=== PATIENT | female | born 1975 | race Caucasian/White ===

== ENCOUNTER 2018-02-03 13:16 | Outpatient (REF) | payer BC, SELFPAY ==
--- NOTE | 2018-02-03 11:50 | PAPFT_PTH ---
PATIENT: Maria Del CarmenJuly LOC: NCN U#:[id number] AGE/SX: 42/F ROOM: RE02/03/[address]: Anna Ashby : 1975 BED: DIS: 02/03/2018 SPEC #: [id number] RECD: 02/04/18 13:09 STATUS: EVELYN REQ #: [id number] PAULA: 02/03/18 11:[address]: Anna Ashby DEPT: [facility] Cytology RECD BY: Pau Hartmann Tissues: 1 - CX/ENDOCX FOR PAP SMEARS Procedures: PAP THIN PREP/UVM Screening HPV DNA PROBE Comments: [id number] (CHLAMYDIA/GC)
[2018-02-05 18:05] LABS: Chlamydia Result Negative; GC Result Negative; Specimen Description SEE COMMENTS
== END 2018-02-03 13:36 ==
LOC: NCHCN 13:16
PROVIDERS: PCP Nurse Practitioner Family; Visit Provider Nurse Practitioner Family
DX: Z11.3 Encounter for screening for infections with a predominantly sexual mode of transmission (principal); Z12.4 Encounter for screening for malignant neoplasm of cervix; Z11.51 Encounter for screening for human papillomavirus (HPV); Z00.00 Encounter for general adult medical examination without abnormal findings
CPT/HCPCS: 87491; 87591; 88142; 87624

== ENCOUNTER 2018-02-18 00:10 | Outpatient (CLI) | payer BC, SELFPAY ==
--- NOTE | 2018-02-18 11:53 | DI.MAMMO_ITS ---
SYMPTOMS/DIAGNOSIS: SCREENING, Z12.31 MAMMOGRAMS: Mammograms were interpreted according to the usual protocol including computer analysis with CAD system, tomosynthesis and C view imaging. Comparison is with the prior examinations. No masses or microcalcifications are seen. There is nothing to suggest malignancy. IMPRESSION: Negative mammogram. Routine screening is recommended. Category 1 , breast density A. MQSA ASSESSMENT OF FINDINGS: Negative. Category 1. Patient will receive a letter notifying them of these results. BI-RAD category A. The breasts are almost entirely fatty.
== END 2018-02-18 00:30 ==
PROVIDERS: PCP Nurse Practitioner Family; Visit Provider Nurse Practitioner Family
DX: Z12.31 Encounter for screening mammogram for malignant neoplasm of breast (principal)
CPT/HCPCS: 77063; 77067

== ENCOUNTER 2018-02-20 01:41 | Outpatient (CLI) | payer BC, SELFPAY ==
[2018-02-20 08:09] LABS: HCT 39.6 % (36.0-46.0); HGB 13.7 g/dL (12.0-15.5); Mean Corp. HGB Concentration 34.6 g/dL (32.0-36.0); Mean Corpuscular Hemoglobin 31.2 pg (27.0-33.0); Mean Corpuscular Volume 90.2 fL (80-95); Platelet Count 227 x1000/uL (130-400); RBC 4.39 m/cumm (4.00-5.20); RBC Distribution Width 12.8 % (11.7-14.6); White Blood Cell Count 5.98 k/cumm (4.4-10.8)
[2018-02-20 08:19] LABS: Hemoglobin A1C 5.6 % (4.5-6.2)
[2018-02-20 09:20] LABS: Vitamin D 25 Total 29.6 ng/ml (30-100)
[2018-02-20 09:27] LABS: ALT 18 U/L (12-78); AST 17 U/L (15-37); Albumin 3.6 g/dL (3.4-5.0); Alkaline Phosphatase 76 U/L (46-116); Anion Gap 9.9 mmol/L (3-11); BUN 15 mg/dL (7-18); Bilirubin, Total 0.6 mg/dL (0.2-1.0); CO2 25.1 mmol/L (21.0-32.0); CREATININE 0.74 mg/dL (0.55-1.02); Calcium 8.5 mg/dL (8.5-10.1); Chloride 105 mmol/L (98-107); Cholesterol 169 mg/dL (50-200); Ferritin 17 ng/mL (8-388); Glucose 96 mg/dL (70-100); HDL Cholesterol 58 mg/dL (40-60); LDL CHOLESTEROL 94 mg/dL (<100); Potassium 3.8 mmol/L (3.5-5.1); Sodium 140 mmol/L (136-145); T4 8.5 ug/dL (4.5-12.5); TSH 1.57 uIU/mL (0.358-3.74); Total Protein 6.8 g/dL (6.4-8.2); Triglyceride 92 mg/dL (30-150); Vitamin B12 545 pg/mL (193-986)
[2018-02-20 21:48] LABS: T3, Total 159 ng/dl (97-169)
== END 2018-02-20 02:01 ==
PROVIDERS: PCP Nurse Practitioner Family; Visit Provider Nurse Practitioner Family
DX: Z13.1 Encounter for screening for diabetes mellitus (principal); Z13.0 Encounter for screening for diseases of the blood and blood-forming organs and certain disorders involving the immune mechanism; Z13.6 Encounter for screening for cardiovascular disorders; Z13.29 Encounter for screening for other suspected endocrine disorder; Z13.220 Encounter for screening for lipoid disorders; R53.83 Other fatigue
CPT/HCPCS: 36415; 80053; 80061; 82306; 83721; 85027; 82607; 82728; 83036; 84436; 84443; 84480

== ENCOUNTER 2021-11-29 16:19 | Outpatient (REF) | payer BC, SELFPAY ==
[2021-11-30 10:37] LABS: Lyme Ab w Rflx to Lyme Confirm Negative (Negative)
[2021-12-01 11:34] LABS: COVID-19 RT-PCR UVMMC Result Negative (Negative)
[2021-12-03 00:15] LABS: B. miyamotoi PCR Negative (Negative); Babesia divergens/MO-1 Negative (Negative); Babesia duncani Negative (Negative); Babesia microti Negative (Negative); Ehrlichia chaffeensis Negative (Negative); Ehrlichia ewingii/canis Negative (Negative); Ehrlichia muris eauclairensis Negative (Negative)
[2021-12-03 07:00] LABS: Anaplasma phagocytophilum Positive (Negative)
== END 2021-11-29 16:20 | disposition home or self-care (01) ==
LOC: LBN 16:19
PROVIDERS: PCP Nurse Practitioner Family; Visit Provider Physician Assistant Medical
DX: Z20.822 Contact with and (suspected) exposure to COVID-19 (principal); R05.9 Cough, unspecified
CPT/HCPCS: 87798; U0003; 86618

== ENCOUNTER 2021-12-19 10:42 | Outpatient (REF) | payer BC, SELFPAY ==
--- OUTSIDE RECORDS SUMMARY | 2021-12-19 10:47 | XMS_ITS | Encounter Summary ---
:1975 Author Organization [facility] Address [address] [place] [address] Care Team Providers Name Role Phone Cas Magdaleno MD Primary Care Provider Encounter Details Date Type Department Care Team Description 08/18/2008 Hospital Encounter [facility] - Unruly Chapman [facility] MD Kristian [address] [facility] [address] [place], [place] [address] [place] [address] [phone] (Wo rk) Social History Tobacco Use Types Packs/Day Years Used Date Never Assessed Sex Assigned at Date Recorded Not on file documented as of this encounter Plan of Treatment Pending Results Name Type Priority Associated Date/Time Diagnoses [facility] Echocardiography 08/18/2008 9:00 ECHOCARDIOGRAM (PEDI EDT CARD) documented as of this encounter Procedures Procedure Name Priority Date/Time Associated Comments Diagnosis CYTOPATHOLOGY Routine 02/02/2009 0:00 Results for this EDT procedure are i n the results section. SURGICAL PATHOLOGY Routine 09/01/2008 0:00 Result s for this EDT procedure are i n the results section. [facility] 08/18/2008 9:00 Results for this ECHOCARDIOGRAM (PEDI EDT procedu re are in CARD) the results section. documented in this encounter Results CYTOPATHOLOGY (02/02/2009 0:00 EDT) Pathology Report: CYTOPATHOLOGY REPORT ? [facility] ? LAB Reports generated via electr onic interface contain original data; ? however they are lacking the format of the original report. ? Caution should be taken when reading/interpreting unformatted reports. ? Name: ? DORETHA JOYCE ? Accession #: ? [id number] ? : ? 1975 (Age: 33) ??F ?Collect Date: ? 02/02/2009 ? Location: ? [facility] ? Receive Date: ? 02/03/2009 ? Provider: ?ANEA LELON G CNM ? Copy to: ? Specimen/Source: ? Pap Test, Cervix/Endocervix, ThinPrep Imaging System ? with manual evaluation ? Last Menstrual Period: ? 9/17/09 ? Other: ? Additional clinical informat ion: Del. 5/12/09 ? HPVA - HPV testing requested if ASC-US on the current ThinPrep Pap test. ? SPECIMEN ADEQUACY ? Satisfactory for Eval uation ? - transformation zone compon ent present ? GENERAL CATEGORIZATION ? Negative for Intraepi thelial Lesion or Malignancy ? Document reviewed and electr onically signed by: ? Nolan Avitia, CT (ASCP) ? Report Date: ??10/21/ 2009 12:09 ? End of Report ? Specimen Performing Organization Address [facility]/State/ZIP Code Phon e Number [facility] [address] [place] [address] SERVICES [facility] [address] [place] [address] SURGICAL PATHOLOGY (09/01/2008 0:00 EDT) Pathologist [facility] Pathology Report: SURGICAL PATHOLOGY REPORT ? [facility] Reports generated via electr onic interface contain original data; ? LAB however they are lacking the format of the original report. ? Caution should be taken when reading/interpreting unformatted reports. ? Name: ? DORETHA JOYCE ? Accession #: ? [id number] ? : ? 1975 (Age: 33) ??F ? Collec t Date: ? 09/01/2008 ? Location: ? [facility] ? R eceive Date: ? 09/01/2008 ? Provider: EDY JENA MD ? Copy to: AMELIE AJAMIE MD ? Final Pathologic Diagnosis: ? A. ?Fallopian t ube, right, sterilization: ? 1. ?Complete cr oss section of fallopian tube with no specific pathologic features. ? B. ?Fallopian t ube, left, sterilization: ? 1. ?Complete cr oss section of fallopian tube with no specific pathologic features. ? Document reviewed and electr onically signed by: ? LAZARO MOUNT MD ? Report ??Date: 09/03/2008 15 :20 ? By the signature above, the attending physician certifies that he/she has ? personally conducted a gross and/or microscopic examination of the described ? specimens and rendered or co nfirmed the above diagnosis. ? Specimen(s) Received: ? A. ?Right tube ? B. ? Left tube ? Clinical History: ? Undesired fertility, LMP: 11/20/2007 ? Gross Description: ? Received in formalin labelled Melodie Doretha and right tube is a 1.9 cm ?? in length by 0.4 cm in avera ge diameter, mcgowan-purple tubular soft tissue grossly consistent with a segment of fallopian tube. ??Sectioning reveals a cam-white cut surface with a pinpoint lume n throughout. ??Two medical claims representative cross sections are submitted as (A). ? Received in formalin geo d Melodie July and left tube is a 2.1 cm in ? length by 0.5 cm in average diameter, mcgowan-purple tubular soft tissue grossly ?? consistent with a segment of fallopian tube. ??Sectioning reveals a cam-white cut surface with a pinpoint lume n throughout. ??Two medical claims representative cross sections are submitted as (B). ??(Alexander bryson)/[facility] ? End of Report ? Specimen Performing Organization Address City/State/ZIP Code Phon e Number [facility] [address] [place] [address] SERVICES [facility] [address] [place] [address] [facility] ECHOCARDIOGRAM (PEDI CARD) (08/18/2008 9:00 EDT) Specimen Narrative [facility] - 08/18/2008 9: 27 EDT Patient Name: DORETHA JOYCE Chart Number: [id number] Site Location: Date of Appt: Monday, August 18, 2008, 9:00 AM Echocardiogram Report Demographics and Visit Data: Due Date: 26-Aug-2008. ??Gestational age (weeks): 39.00. ?? : 1975. ??Age: 33y/0m/15d. ??[place] son for test: ECHO/ ARRHYTHMIA FO. ?? Person requesting test: ADRIANA SAGE,ANEA. ??Procedure Description: [facility] ECHOCARDIOGRAM (PEDI CARD). ?? echocardiogram at 39 weeks gestati on. Normal chamber size and function. Normal arterial and venous connections. Normal Doppler study. Frequent, isolated arrhythmias noted dur ing the exam. M-mode exam suggests premature atrial contractions. No repeti tive beats or runs of tachycardia seen. No evidence of hydrops. The results of the study, its limitation s and the limitations of echocardiography in general were reviewe d. The inability to diagnose patent ductus arteriosus, some atrial de fects, ventricular septal defects and coarctation was discussed. Further f etal echocardiography is not recommended unless new concerns arise. Findings: ?? Veins and Atria: ?? >> Patent foramen ovale Right to left flow. ?? >> Normal Left Atrium >> Normal Right Atrium >> Normal Pulmonary venous connections At least one pulmonary vein is seen ente ring from each side. ?? >> Normal Systemic Veins ?? A-V Canal: ?? >> Normal Tricuspid Valve >> Normal Mitral Valve ?? Ventricles: ?? >> Left ventricular dysfunction, ruled o ut >> Right ventricular dysfunction global, ruled out ?? Conotruncus: ?? >> Normal Pulmonary Valve >> Normal Aortic Valve ?? Great Arteries: ?? >> Patent ductus arteriosus Right to left flow. ?? >> Normal Pulmonary Artery >> Normal Aorta >> Normal Aortic Arch ?? Pericardium: ?? >> Pericardial effusion, ruled out ?? Other: ?? >> echo ?? Measures: ?? LV Geometry: ?? Name ? Value ?Units ?Z-Score ?Min ?Max ?? LV Short [place] Diastolic Dimension ? 1.50 ? cm ? -1.63 ? 1.45 ?1.96 ? RV Geometry: ?? Name ? Value ?Units ?Z-Score ?Min ?Max ?? RV Short [place] Diastolic Dimension ? 1.70 ? cm ? -0.58 ? 1.49 ?2.08 ?? [place]'s Name: BLAS WAN,STERLING Zambrano Date/time of reading: Aug 18 2008 - 9:25:06 AM Report created at 9:27:07 AM on August 18, 2008 Procedure Note 08/27/2008 Patient Name: MELODIE JULY Chart Number: [id number] Site Location: Date of Appt: Monday, August 18, 2008, 9:00 AM Echocardiogram Report Demographics and Visit Data: Due Date: 26-Aug-2008. Gestational age ( weeks): 39.00. : 1975. Age: 33y/0m/15d. Reason for test: ECHO/ ARRHYTHMIA FO. Person requesting test: AGUSTIN WRIGHT CNM. Procedure Description: [facility] ECHOCARDIOGRAM (PEDI CARD). echocardiogram at 39 weeks gestati on. Normal chamber size and function. Normal arterial and venous connections. Normal Doppler study. Frequent, isolated arrhythmias noted dur ing the exam. M-mode exam suggests premature atrial contractions. No repeti tive beats or runs of tachycardia seen. No evidence of hydrops. The results of the study, its limitation s and the limitations of echocardiography in general were reviewe d. The inability to diagnose patent ductus arteriosus, some atrial de fects, ventricular septal defects and coarctation was discussed. Further f etal echocardiography is not recommended unless new concerns arise. Findings: Veins and Atria: >> Patent foramen ovale Right to left flow. >> Normal Left Atrium >> Normal Right Atrium >> Normal Pulmonary venous connections At least one pulmonary vein is seen ente ring from each side. >> Normal Systemic Veins A-V Canal: >> Normal Tricuspid Valve >> Normal Mitral Valve Ventricles: >> Left ventricular dysfunction, ruled o ut >> Right ventricular dysfunction global, ruled out Conotruncus: >> Normal Pulmonary Valve >> Normal Aortic Valve Great Arteries: >> Patent ductus arteriosus Right to left flow. >> Normal Pulmonary Artery >> Normal Aorta >> Normal Aortic Arch Pericardium: >> Pericardial effusion, ruled out Other: >> echo Measures: LV Geometry: Name Value Units Z-Score Min Max LV Short [place] Diastolic Dimension 1.50 cm -1.63 1.45 1.96 RV Geometry: Name Value Units Z-Score Min Max RV Short [place] Diastolic Dimension 1.70 cm -0.58 1.49 2.08 [place]'s Name: BLAS WAN,STERLING Zambrano Date/time of reading: Aug 18 2008 - 9:25:06 AM Report created at 9:27:07 AM on August 18, 2008 Performing Organization Address City/State/ZIP Code Phon e Number [facility] [address] [facility] [address] [facility] [address] [place], [place] [address] documented in this encounter Visit Diagnoses Not on filedocumented in this encounter Care Teams Anodize Machine Operator Relationship Specialty Start Date End Date Cas Magdaleno MD PCP - General 08/16/[address] [place] [phone] documented as of this encounter
--- OUTSIDE RECORDS SUMMARY | 2021-12-19 10:47 | XMS_ITS | Encounter Summary ---
:1975 Author Organization [facility] [place] [address] Care Team Providers Name Role Phone Anna Ashby APRN Primary Care Provider Encounter Details Date Type Department Care Team Description 04/25/2018 Notes Only Hematology and Oncology at Luis Miguel Pink MD [facility] Tia fischer HEMATOLOGY/[place] [address] [place] [address] [phone] (Wo rk) Social History Tobacco Use Types Packs/Day Years Used Date Never Assessed Sex Assigned at Date Recorded Not on file documented as of this encounter Progress Notes Luis Miguel Mckeon MD - 04/25/2018 11:58 AM EST I have reviewed the patient's record and given personal and/or family history of cancer she should be seen by genetic counselor. This is scheduled for next week. documented in this encounter Plan of Treatment Not on filedocumented as of this encounter Visit Diagnoses Not on filedocumented in this encounter Care Teams Consumer Relations Complaint Clerk Relationship Specialty Start Date End Date Anna Ashby APRN PCP - General Family Medicine 02/10/18 11/19/18 documented as of this encounter
--- OUTSIDE RECORDS SUMMARY | 2021-12-19 10:47 | XMS_ITS | Encounter Summary ---
:1975 Author Organization [facility] Address [address] [place] [address] Care Team Providers Name Role Phone Cas Magdaleno MD Primary Care Provider Unknown, Moo WAN Primary Care Provider Encounter Details Date Type Department Care Team Description 01/15/2008 Before [facility] - Carol Fajardo CNM Converted Visit Maple conversion [address] [facility] ([place]) [address] [place] [phone] (Wo rk) Social History Tobacco Use Types Packs/Day Years Used Date Never Assessed Sex Assigned at Date Recorded Not on file documented as of this encounter Plan of Treatment Not on filedocumented as of this encounter Procedures Procedure Name Priority Date/Time Associated Diagnosis Comme nts CYTOPATHOLOGY Routine 01/15/2008 0:00 EDT Results for this procedure are i n the results section . documented in this encounter Results CYTOPATHOLOGY (01/15/2008 0:00 EDT) Pathology Report: CYTOPATHOLOGY REPORT ? [facility] ? LAB Reports generated via electr onic interface contain original data; ? however they are lacking the format of the original report. ? Caution should be taken when reading/interpreting unformatted reports. ? Name: ? SABRINADELROYLillie LAM E ? Accession #: ? [id number] ? : ? 1975 (Age: 32) ??F ?Collect Date: ? 01/15/2008 ? Location: ? [facility] ? Receive Date: ? 01/16/2008 ? Provider: ?ANEA LELON G CNM ? Copy to: ? Specimen/Source: ? ThinPrep Pap Test, Cervix/Endocervix, processed on [facility] ThinPrep Imaging System, wit h manual evaluation ? Last Menstrual Period: ? 7/31/08 ? Menstrual/ Status: ? Other: ? HPVA - HPV testing requested if ASC-US on the current ThinPrep Pap test. ? SPECIMEN ADEQUACY ? Satisfactory for Eval uation ? - transformation zone compon ent present ? GENERAL CATEGORIZATION ? Negative for Intraepi thelial Lesion or Malignancy ? Document reviewed and electr onically signed by: ? Pari [place], [place]( CP)(IAC) ? Report Date: ??09/30/ 2008 11:58 ? End of Report ? Specimen Performing Organization Address City/State/[facility] Code Phon e Number [facility] [address] [place] [address] SERVICES [facility] [address] [place] [address] documented in this encounter Visit Diagnoses Not on filedocumented in this encounter Care Teams Blindstitch Machine Operator Relationship Specialty Start Date End Date Cas Magdaleno MD PCP - General 08/16/[address] [place] [phone] Unknown, MD Moo PCP - General 08/13/08 08/15/08 documented as of this encounter
--- OUTSIDE RECORDS SUMMARY | 2021-12-19 10:47 | XMS_ITS | Encounter Summary ---
:1975 Author Organization [facility] Address [facility] [place] [address] Care Team Providers Name Role Phone Anna Ashby APRN Primary Care Provider Reason for Visit Reason Comments Genetic Evaluation mother with ovarian cancer Consultation (Routine) - Closed Specialty Diagnoses / Referred By Contact Referred To Contact Procedures Hematology and Diagnoses family hx of ovarian cancer Anna Ashby APRN [facility] 3k Oncology [facility] [address] [place] [phone] Fax: Referral ID Status Reason Start Date Expiration Date Visits V isits Requested Authorized [id number] Closed Consult, 02/10/2018 02/10/2019 1 [facility] Encounter Details Date Type Department Care Team Description 04/30/2018 TH Visit Hematology and Lena Renae, Family history of (TeleHealth) Oncology at [facility] malignant neoplasm [facility] [address] [place] HEMATOLOGY/ONCOLOGY [phone] DEPT. [phone] [place], [place] [address] (Wo rk) Social History Tobacco Use Types Packs/Day Years Used Date Never Assessed Sex Assigned at Date Recorded Not on file documented as of this encounter Progress Notes Lena Renae [facility] - 04/30/2018 3:00 PM EST Ms. Joyce was seen by Anisa Renae MS, [facility] in consultation at the request of Anna Ashby APRN to advise regarding possible heritable predisposition to cancer. I spent 30 minutes of this face to face encounter with the patient gathering medical and family history and discussing the likelihood of a genetic predisposition to cancer and the option of genetic testing. Reason for referral/Chief complaint Family history of ovarian cancer and other cancers. Medical history Cancer hx and treatment: n/a Age at 1st menses: ? Age at 1st child: 29 Menopause status: Premenopausal Oral contraceptive use: n/a Hormone replacement therapy use: n/a Current cancer screening: Baseline mammogram at age 39. Second mammogram at age 42. Family History of Cancer Problem Relation Age of Onset ??? Ovarian Cancer Mother 63 ??? Cancer Father 64 testicular ??? Lymphoma Maternal Grandfather 60 ??? Cancer Paternal Uncle 70 testicular Maternal ethnic background is [employer]. Paternal ethnic background is unknown. Genetic risk assessment Panel genetic testing for an inherited predisposition to cancer, including ovarian, was discussed. The risks, benefits and limitations of panel genetic testing were reviewed, specifically a high rate of identifying a variant of uncertain significance (~20%), lack of knowledge of cancer risk for newly i dentified, moderate risk genes included in the panel and lack of effective screening, as well as cancer risk for other cancers not observed in the family. The likelihood that Doretha would be found to have a mutation in a cancer predisposition gene is high enough to offer the option of genetic testing. Doretha opted for testing with [facility] Common Hereditary Cancers Panel, a next generation sequencing panel that simultaneously analyzes 47 genes, including BRCA1 and BRCA2, BRIP1, RAD51C, RAD51D, etc., that contribute to increased risk for cancer, including ovarian. Doretha was consented. Her blood sample was drawn and sent to [facility]. Testing will take approximately 3 weeks. Doretha will be contacted via telephone once her test resultsbecome available. If positive, we will schedule an in person follow-up appointment. At that time, sheri discuss with Doretha the implications that this test result may have for her, as well as her family members. We will also provide Doretha with screening guidelines for cancer prevention and early detection, as well as answer any questions she may have. documented in this encounter Plan of Treatment Not on filedocumented as of this encounter Visit Diagnoses Diagnosis Family history of malignant neoplasm of ovary documented in this encounter Care Teams Account Manager Trainee Relationship Specialty Start Date End Date Anna Ashby APRN PCP - General Family Medicine 02/10/18 11/19/18 documented as of this encounter
--- OUTSIDE RECORDS SUMMARY | 2021-12-19 10:47 | XMS_ITS | Encounter Summary ---
:1975 Author Organization [facility] Address [address] [place] [address] Care Team Providers Name Role Phone Cas Magdaleno MD Primary Care Provider Encounter Details Date Type Department Care Team Description 11/30/2021 Lab Requisition [facility] Outr Resulting Lab, Pathology & Laboratory Provider [facility] [address] [place], [place] [address] Social History Tobacco Use Types Packs/Day Years Used Date Never Assessed Sex Assigned at Date Recorded Not on file documented as of this encounter Plan of Treatment Not on filedocumented as of this encounter Procedures Procedure Name Priority Date/Time Associated Diagnosis Comme nts [facility] 11/29/2021 10:00 LAB PCR EDT COVID-19 TESTING Routine 11/29/2021 10:00 Results for this EDT procedure are i n the results section. documented in this encounter Results COVID-19 TEST [facility] PCR (11/29/2021 10:00 EDT) Specimen Swab Performing Organization Address City/State/ZIP Code Phon e Number [facility] [address] [place] [address] SERVICES COVID-19 TESTING (11/29/2021 10:00 EDT) COVID-19 rt-PCR Negative Negative [facility] Result Comment: [facility] This test has not been FDA c leared or approved. This test has been authorized by FDA under an EUA for use by authorized laboratories. This test has been authorized only for detection of nucleic acid fro SERVICES m 2019-nCoV, not for any oth er viruses or pathogens. This test is only authorized for the duration of the declaration that circumstances exist justifying the authorization of emergency use of in vitro d iagnostic tests for detectio n and/or diagnosis of 2019-nCoV under section 564(b)(1) of Act, 21 U.S.C ?? 360bbb-3(b) (1), unless the authorization is terminated or revoked sooner. Negative results do not prec lude 2019-nCoV infection and should not be used as the sole basis for treatment or other patient management decisions. Negative results must be combined with clinical observa tions, patient history, and epidemiological informatio n. Testing was performed using the kendall SARS-CoV-2 assay ([employer] on the [place] [address]00 System Performing Lab [place] [address] [facility] Lab [facility] SERVICES Specimen Swab Performing Organization Address City/State/ZIP Code Phon e Number [facility] [address] [place] [address] SERVICES documented in this encounter Visit Diagnoses Not on filedocumented in this encounter Care Teams Radiographer Angiogram Relationship Specialty Start Date End Date Cas Magdaleno MD PCP - General 08/16/[address] [place] [phone] documented as of this encounter
--- OUTSIDE RECORDS SUMMARY | 2021-12-19 10:47 | XMS_ITS | Encounter Summary ---
:1975 Author Organization [facility] Address [address] [place] [address] Care Team Providers Name Role Phone Cas Magdaleno MD Primary Care Provider Encounter Details Date Type Department Care Team Description 02/03/2018 Results Only [facility]- Anna Minor, HOUSEKEEPER CAREGIVER [phone] [address] [place] [address] (Wo rk) Social History Tobacco Use Types Packs/Day Years Used Date Never Assessed Sex Assigned at Date Recorded Not on file documented as of this encounter Plan of Treatment Not on filedocumented as of this encounter Procedures Procedure Name Priority Date/Time Associated Diagnosis Comme nts PAP TEST- RESULT Routine 02/03/2018 0:00 EDT Resu lts for this ONLY procedure are i n the results section. documented in this encounter Results PAP TEST- RESULT ONLY (02/03/2018 0:00 EDT) Pathology Report: CYTOPATHOLOGY REPORT [facility] Reports generated via electronic interface contain grady ginal data; SERVICES however they are lacking the format of the original re port. Caution should be taken when reading/interpreting unfo rmatted reports. Name: ? MARIA DEL CARMEN July ? Accession #: ? [id number] ? : ? 1975 (Age: [age]) ??F ?Collect Da te: ? 02/03/2018 ? Location: ? [facility] ? Receive Date: ? 018 ? Provider: ANNA COMBS HOUSEKEEPER CAREGIVER Copy to: ? Final Report SPECIMEN ADEQUACY ? Satisfactory for Evaluation - transformation zone component present GENERAL CATEGORIZATION ? Negative for Intraepithelial Lesion or Malignan cy ?? Last Menstrual Period: 01/27/18 Other: Additional clinical information: Z00.00 Z12.4 Z 11.51 Specimen/Source: ??Pap Test, Cervix, ThinPrep Imaging System with manual evaluation Document reviewed and electronically signed by: ? NESS Stewart(ASCP) ? Report ??Date: 02/14/2018 13:46 HPV with Pap Test ? Date Ordered: ? 02/14/2018 ? Status: ?? Signed Out ?Date Complete: ? 02/17/2018 ? By: ??S ystem Interface ? Date Reported: ? 02/17/2018 ? Interpretation RESULT: Negative for HPV. No E6 or E7 mRNA is detected from HPV types 16,18,31,3 3,35, 39,45,51,52,56,58,59,66, and 68 by websphere portal architect media britta amplification. Comments Document reviewed and electronically signed by: ? System Interface ? Report date: 02/17/2018 By the signature above, the attending physician certif ies that he/she has personally conducted a gross and/or microscopic examin ation of the described specimens and rendered or confirmed the above diagnosi s. End of Report Specimen Performing Organization Address City/State/ZIP Code Phon e Number [facility] [address] [place] [address] SERVICES documented in this encounter Visit Diagnoses Not on filedocumented in this encounter Care Teams Onsite Case Manager Relationship Specialty Start Date End Date Cas Magdaleno MD PCP - General 08/16/[address] [place] [address] [phone] documented as of this encounter
--- OUTSIDE RECORDS SUMMARY | 2021-12-19 10:47 | XMS_ITS | Clinical Summary ---
:1975 Author Organization [facility] [place] [address] Care Team Providers Name Role Phone Unknown Primary Care Provider Unavailable Allergies No known active allergies Medications No known medications Family History Medical History Relation Comments Cancer Father testicular Lymphoma Maternal Grandfather Ovarian Cancer Mother Cancer Paternal Uncle testicular Relation Status Comments Brother 1 Alive Brother 2 Alive Father (Age 65) Maternal Grandfather (Age 62) Maternal Grandmother (Age 87) Mother (Age 64) Paternal Grandfather Paternal Grandmother Paternal Uncle Alive Social History Tobacco Use Types Packs/Day Years Used Date Never Smoker Smokeless Tobacco: Never Used Sex Assigned at Date Recorded Not on file Plan of Treatment Health Maintenance Due Date Last Done Comments Covid-19 Vaccine (#1) 08/04/1979 HIV screen 1992 Hepatitis C Screening 1992 Tdap adult 1993 Tetanus vaccine 1993 HPV test 2004 PAP Smear 2004 Breast Cancer Share Decision Needed 2014 Colonoscopy 08/04/2019 Influenza (Flu) vaccine ( - Influenza standard 12/21/2021 series) Insurance Payer Benefit Plan Subscriber ID Effective Dates Phone Address Type / Group [facility] [id number] 2018-Presen [phone] [address] [facility] [address] [facility] [id number] Care Teams Cardiology Tech Relationship Specialty Start Date End Date Unknown PCP - General 11/20/18 None
--- OUTSIDE RECORDS SUMMARY | 2021-12-19 10:47 | XMS_ITS | Encounter Summary ---
:1975 Author Organization [facility] Address [address] [place] [address] Care Team Providers Name Role Phone Cas Magdaleno MD Primary Care Provider Encounter Details Date Type Department Care Team Description 11/29/2021 Lab Requisition [facility] Outr Resulting Lab, Pathology & Laboratory Provider [facility] [address] [place] [address] Social History Tobacco Use Types Packs/Day Years Used Date Never Assessed Sex Assigned at Date Recorded Not on file documented as of this encounter Plan of Treatment Not on filedocumented as of this encounter Procedures Procedure Name Priority Date/Time Associated Diagnosis Comme nts LYME AB Routine 11/29/2021 10:00 EDT Results for this procedure are i n the results section . documented in this encounter Results LYME AB (11/29/2021 10:00 EDT) Pathologist Sig nature Lyme Ab Negative Negative [facility] LAB[facility]ATOR Y SERVICES Specimen Blood - Venous blood (substance) Performing Organization Address City/State/ZIP Code Phon e Number [facility] [address] [place] [address] SERVICES documented in this encounter Visit Diagnoses Not on filedocumented in this encounter Care Teams Vending Stand Supervisor Relationship Specialty Start Date End Date Cas Magdaleno MD PCP - General 08/16/[address] [place] [phone] documented as of this encounter
--- OUTSIDE RECORDS SUMMARY | 2021-12-19 10:47 | XMS_ITS | Encounter Summary ---
:1975 Author Organization [facility] Address [address] [place] [address] Care Team Providers Name Role Phone Cas Magdaleno MD Primary Care Provider Encounter Details Date Type Department Care Team Description 12/03/2012 Results Only [facility] Deborah Peoples, SMASHER HAND Laboratory Services - [address] [facility] [address] [place] [address] [place] [phone] [place] [address] [phone] Social History Tobacco Use Types Packs/Day Years Used Date Never Assessed Sex Assigned at Date Recorded Not on file documented as of this encounter Plan of Treatment Not on filedocumented as of this encounter Procedures Procedure Name Priority Date/Time Associated Diagnosis Comme nts PAP TEST- RESULT Routine 12/03/2012 0:00 EDT Resu lts for this ONLY procedure are i n the results section. documented in this encounter Results PAP TEST- RESULT ONLY (12/03/2012 0:00 EDT) Pathology Report: CYTOPATHOLOGY REPORT [facility] Reports generated via electronic interface contain grady ginal data; however they are lacking the format of the original re port. Caution should be taken when reading/interpreting unfo rmatted reports. Name: ? MARIA DEL CARMEN July ? Accession #: ? [id number] : ? 1975 (Age: 37) ??F ?Collect Date: ? 11/20 Location: ? [facility] ? Receive Date : ? 12/04/2012 Provider: ?BRITTANY PEOPLES SMASHER HAND Copy to: ? Specimen/Source: ? Pap Test, Cervix/Endocervix, ThinPrep Imaging System with manual evaluation Last Menstrual Period: ? 11/06/12 Hormonal/Contraceptive Status: ? Tubal ligation: 2008 ? SPECIMEN ADEQUACY ? Satisfactory for Evaluation - transformation zone component present - scant squamous epithelial component GENERAL CATEGORIZATION ? Negative for Intraepithelial Lesion or Malignan cy ? Document reviewed and electronically signed by: ? NESS Duke(ASCP) ? Report Date: ??12/10/2012 13:10 End of Report Specimen Performing Organization Address City/State/ZIP Code Phon e Number [facility] [address] [place] [address] SERVICES [facility] [address] [place] [address] documented in this encounter Visit Diagnoses Not on filedocumented in this encounter Care Teams System Validation Engineer Relationship Specialty Start Date End Date Cas Magdaleno MD PCP - General 08/16/[address] [place] [phone] documented as of this encounter
--- OUTSIDE RECORDS SUMMARY | 2021-12-19 10:47 | XMS_ITS | Encounter Summary ---
:1975 Author Organization [facility] Address [address] [place] [address] Care Team Providers Name Role Phone Cas Magdaleno MD Primary Care Provider Unknown, Provider Primary Care Provider Encounter Details Date Type Department Care Team Description 03/18/2006 Results Only [facility] - Derick Russell, REFINERY OPERATOR GAS PLANT conversion [address] [phone] (Wo rk) Social History Tobacco Use Types Packs/Day Years Used Date Never Assessed Sex Assigned at Date Recorded Not on file documented as of this encounter Plan of Treatment Not on filedocumented as of this encounter Procedures Procedure Name Priority Date/Time Associated Diagnosis Comme nts CYTOPATHOLOGY Routine 03/18/2006 0:00 EST Results for this procedure are i n the results section . documented in this encounter Results CYTOPATHOLOGY (03/18/2006 0:00 EST) Pathology Report: CYTOPATHOLOGY REPORT [facility] Reports generated via electronic interface contain grady ginal data; however they are lacking the format of the original re port. Caution should be taken when reading/interpreting unfo rmatted reports. Name: ? MARIA DEL CARMEN July ? Accession #: ? [id number] : ? 1975 (Age: 30) ??F ?Collect Date: ? 02/21 Location: ? [facility] ? Receive Date : ? 03/20/2006 Provider: ?DERICK REZA REFINERY OPERATOR GAS PLANT Copy to: ? Specimen/Source: ? ThinPrep Pap Test, Cervix/Endocervix, processed on [employer] ThinPrep Imaging System, with manual evaluation Last Menstrual Period: ? 10.06 Other: ? HPVA - HPV testing requested if ASC-US on the current ThinPrep Pap test. ? SPECIMEN ADEQUACY ? Satisfactory for Evaluation - transformation zone component present GENERAL CATEGORIZATION ? Negative for Intraepithelial Lesion or Malignan cy ? Document reviewed and electronically signed by: ? FATEMEH Goyal(ASCP) ? Report Date: ??03/25/2006 15:50 End of Report Specimen Performing Organization Address City/State/ZIP Code Phon e Number [facility] [address] [place] [address] SERVICES [facility] [address] [place] [address] documented in this encounter Visit Diagnoses Not on filedocumented in this encounter Care Teams Environmental Law Professor Relationship Specialty Start Date End Date Cas Magdaleno MD PCP - General 08/16/[address] [place] [phone] Chintan, MD Moo PCP - General 08/13/08 08/15/08 documented as of this encounter
--- OUTSIDE RECORDS SUMMARY | 2021-12-19 10:47 | XMS_ITS | Clinical Summary ---
:1975 Author Organization [facility] Address [address] [place] [address] Care Team Providers Name Role Phone Cas Magdaleno MD Primary Care Provider Encounters Date Type Specialty Care Team Description 11/30/2021 Lab Requisition Clinical Laboratory Outr Resulting Lab , Provider 11/29/2021 Lab Requisition Clinical Laboratory Outr Resulting Lab , Provider from Last 3 Months Social History Tobacco Use Types Packs/Day Years Used Date Never Assessed Sex Assigned at Date Recorded Not on file Plan of Treatment Not on file Procedures Procedure Name Priority Date/Time Associated Diagnosis Comme nts LYME AB Routine 11/29/2021 10:00 Results for this EDT procedure are i n the results section. COVID-19 TEST [facility] Today 11/29/2021 10:00 LAB PCR EDT COVID-19 TESTING Routine 11/29/2021 10:00 Results for this EDT procedure are i n the results section. from Last 3 Months Results COVID-19 TEST [facility] PCR (11/29/2021 10:00 EDT) Specimen Swab Performing Organization Address City/State/ZIP Code Phon e Number [facility] [address] [place] [address] SERVICES COVID-19 TESTING (11/29/2021 10:00 EDT) COVID-19 rt-PCR Negative Negative [facility] Result Comment: CENTER LABORATORY [...] was performed using the kendall SARS-CoV-2 assay ([employer] on the Kendall 6800 System Performing Lab [place] [address] [facility] Lab [facility] SERVICES Specimen Swab Performing Organization Address City/[facility]/ZIP Code Phon e Number [facility] [address] [place] [address] SERVICES LYME AB (11/29/2021 10:00 EDT) Pathologist Sig nature Lyme Ab Negative Negative [facility] Y SERVICES Specimen Blood - Venous blood (substance) Performing Organization Address City/[facility]/ZIP [facility] Phon e Number [facility] [address] [place] [address] SERVICES from Last 3 Months Care Teams Group Captain Relationship Specialty Start Date End Date Cas Magdaleno MD PCP - General 08/16/[address] [place] [phone]
--- OUTSIDE RECORDS SUMMARY | 2021-12-19 10:47 | XMS_ITS | Encounter Summary ---
:1975 Author Organization [facility] [place] [address] Care Team Providers Name Role Phone AshbyAnna Maryanne THOMPSON Primary Care Provider Encounter Details Date Type Department Care Team Description 05/15/2018 Telephone Hematology and Oncology at [facility] Tia fischer HEMATOLOGY/[place] [address] [place] [address] [phone] (Wo rk) Social History Tobacco Use Types Packs/Day Years Used Date Never Assessed Sex Assigned at Date Recorded Not on file documented as of this encounter Miscellaneous Notes Telephone Encounter - [facility] - 05/15/2018 1:59 PM EST This test result was discussed with the patient by phone. A copy of a letter sent to the patient containing these results is provided below. Please be advised that [place] law requires that all health care workers respect the confidentiality of this information and not pass it along to other health care providers, insurance companies, or individuals without the written permission of the patient. The [facility]amil[facility] welcomes any questions about these matters. Our phone number is: [phone]. On April 30, 2018, Doretha underwent genetic testing for a hereditary predisposition to common hereditary cancers, including breast, gynecologic and gastrointestinal. Following are the results of this test. Result: [employer] Common Hereditary Cancers Panel showed no mutation was detected. This means that Doretha does not carry a mutation in the genes detectable by this test. The following genes were evaluated for sequence changes and exonic deletions/duplications: APC, LIZZETH, AXIN2, BARD1, BMPR1A, BRCA1, BRCA2, BRIP1, CDH1, CDK4, CDKN2A (p14ARF), CDKN2A (m54CSX2c), CHEK2, CTNNA1, DICER1, EPCAM (EPCAM: Deletion/duplication testing only ([id number]), GREM1 (GREM1: Promoter region deletion/duplication testing only.), KIT, MEN1, MLH1, MSH2, MSH3, MSH6, MUTYH, NBN, NF1, PALB2, PDGFRA, PMS2, POLD1, POLE, PTEN, RAD50, RAD51C, RAD51D, SDHB, SDHC, SDHD, SMAD4, SMARCA4, STK11, TP53, TSC1, TSC2, VHL. The following genes were evaluated for sequence changes only: HOXB13 (c.251G>A, p.Zvp91Tbh variant only), NTHL1 (NTHL1:Deletion/duplication analysis is not offered for this gene ([id number]), and SDHA. We are enclosinga printed copy of Doretha's test results. Interpretation: Because the genetic basis, if any, of the ovarian cancer in Doretha's mom and other cancers in her family has not been identified, this negative test result does not necessarily mean that Doretha is not serina higher risk for developing cancer (i.e. not attributable to an inherited predisposition). This is because of two important limitations of the test. First, not all inherited predisposition to cancer is attributable to the genes tested by this panel. Research has identified other genes that when mutated can increase one???s risk of cancer. Second, a small percentage of mutations in genes tested by this panel may be missed by current technology. Additional genetic testing for Doretha is not recommendedat this time. However, we recommend that Doretha recontact us from time to time to see if additional information has become available that could clarify her family history. It is also possible that Doretha is not a cancer predisposition mutation carrier, but that other relatives on her maternal side of the family are cancer predisposition mutation carriers. In order to further clarify Doretha's family history, her brothers and maternal aunt and uncle, may consider pursuing genetic testing themselves at this time. If anyone of Doretha's relatives' results are positive, then weknow that Doretha has not inherited the genetic predisposition present in her family and is at a general population risk of developing cancer. However, if Doretha's relatives' test results are negative, then we continue to believe that there may be a possibility of a hereditary predisposition in Doretha's family which is unidentifiable by our current technology and those at risk, should be screened for cancer based on their family history. Screening Recommendations Based on genetic test results and and family history, we recommend: Breast cancer screening ?? Annual clinical breast exams ?? Annual or biannual tomosynthesis (3D mammogram) starting between ages 40-50. Ovarian cancer risk management Ovarian cancer (and related serous cancers of the fallopian tube and peritoneum) are very difficult to detect early due to a lack of symptoms. Additionally, there are no reliable means to screen women to detect these cancers early, when there is a good chance for a cure. For this reason, surgical removal of the at- risk organs is an option for those with a 1st degree relative with ovarian cancer and alifetime risk of 4-5%. This is outlined below: ??? Risk reducing surgery to remove ones ovaries and fallopian tubes, a bilateral salpingo-oophorectomy, is an option between the age of 35-40 or after childbearing is complete, as it has been shown toreduce the risk of ovarian and fallopian tube cancer. ??? Short term use of hormone replacement therapy for treatment of surgical menopause after an oophorectomy is an option for those with no personal history of breast cancer. ??? Those who have not completed childbearing or who are not good surgical candidates, may consider twice yearly transvaginal ultrasounds and a blood test called CA125, in addition to pelvic exams withtheir fruit cutter. This should start at age 35 or 5-10 years earlier than the earliest age of ovarian cancer in the family. It is important to note that the effectiveness of these modalities for screening for ovarian cancer has not been established and patients should not be falsely reassured by negative screening test results. ??? Young women in need of contraception should consider taking an oral contraceptive, as it has been shown to reduce the incidence of ovarian cancer in women at risk. Other cancer screening ?? Colonoscopy screening starting at age 50 ?? Periodic skin exams documented in this encounter Plan of Treatment Not on filedocumented as of this encounter Visit Diagnoses Not on filedocumented in this encounter Care Teams Homebound Teacher Relationship Specialty Start Date End Date Anna Ashby APRN PCP - General Family Medicine 02/10/18 11/19/18 documented as of this encounter
[2021-12-20 10:58] LABS: Lyme Ab w Rflx to Lyme Confirm Negative (Negative)
[2021-12-21 18:22] LABS: Anaplasma phagocytophilum Negative (Negative); B. miyamotoi PCR Negative (Negative); Babesia divergens/MO-1 Negative (Negative); Babesia duncani Negative (Negative); Babesia microti Negative (Negative); Ehrlichia chaffeensis Negative (Negative); Ehrlichia ewingii/canis Negative (Negative); Ehrlichia muris eauclairensis Negative (Negative)
== END 2021-12-19 10:43 | disposition home or self-care (01) ==
LOC: LBN 10:42
PROVIDERS: PCP Nurse Practitioner Family; Visit Provider Nurse Practitioner Family
DX: R53.83 Other fatigue (principal)
CPT/HCPCS: 87798; 86618

== ENCOUNTER 2022-05-15 13:33 | Outpatient (REF) | payer BC, SELFPAY ==
[2022-05-15 21:07] LABS: Anion Gap 7.7 mmol/L (3-11); BUN 11 mg/dL (7-18); CO2 30.3 mmol/L (21.0-32.0); CREATININE 0.8 mg/dL (0.55-1.02); Calculated LDL 98 mg/dL (<100); Chloride 101 mmol/L (98-107); Cholesterol 180 mg/dL (<200); Glucose 106 mg/dL (74-106); HDL Cholesterol 62 mg/dL (40-60); Potassium 3.2 mmol/L (3.5-5.1); Sodium 139 mmol/L (136-145); TSH (W/Ref FT4) 1.45 uIU/mL (0.36-3.74); Triglyceride 104 mg/dL (<150)
== END 2022-05-15 13:34 | disposition home or self-care (01) ==
LOC: LBN 13:33
PROVIDERS: PCP Nurse Practitioner Family; Visit Provider Family Medicine
DX: Z00.00 Encounter for general adult medical examination without abnormal findings (principal); I10 Essential (primary) hypertension; Z13.1 Encounter for screening for diabetes mellitus; Z13.220 Encounter for screening for lipoid disorders
CPT/HCPCS: 80048; 80061; 83036; 84443

== ENCOUNTER 2023-01-31 12:51 | Outpatient (REF) | payer BC, SELFPAY ==
--- NOTE | 2023-01-31 11:10 | PAPFT_PTH ---
PATIENT: Maria Del CarmenJuly LOC: [facility] U#:[id number] AGE/SX: 47/F ROOM: RE01/31/[address]: OTILIA CHRISTIAN : 1975 BED: DIS: 01/31/2023 SPEC #: [id number] RECD: 01/31/23 18:14 STATUS: EVELYN REQ #: [id number] PAULA: 01/31/23 11:[address]: Otilia Christian DEPT: [facility] Cytology RECD BY: Pau Hartmann ENTERED: 01/31/23 18:14 SP TYPE: PAPFT OTHR DR: Anna Ashby Tissues: 1 - CX/ENDOCX FOR PAP SMEARS Procedures: PAP THIN PREP/[facility] Screening HPV DNA PROBE Comments: [id number] (CHLAMYDIA/GC)
[2023-02-01 15:01] LABS: Chlamydia Result Negative (Negative); GC Result Negative (Negative)
== END 2023-01-31 12:52 | disposition home or self-care (01) ==
LOC: NCHCN 12:51
PROVIDERS: PCP Nurse Practitioner Family; Visit Provider Nurse Practitioner Family
DX: Z00.00 Encounter for general adult medical examination without abnormal findings (principal); Z12.4 Encounter for screening for malignant neoplasm of cervix; Z11.51 Encounter for screening for human papillomavirus (HPV)
CPT/HCPCS: 87491; 87591; 88142; 87624

== ENCOUNTER → 2023-09-05 04:46 | Outpatient (CLI) | payer BC, SELFPAY ==
--- NOTE | 2023-09-05 | DI.MAMMO_ITS ---
Exam(s) MAMMO SCREENING EXAM: MAMMO SCREENING CLINICAL HISTORY: SCREENING, Z12.39. TECHNIQUE: Bilateral full field digital CC and MLO mammographic images were obtained with 3D tomosyn thesis and utilizing computer aided detection (CAD). COMPARISON: Prior mammograms were reviewed. FINDINGS: There has been no significant change in the appearance and distribution of the fibroglandular tissue which is again noted to be predominately fatty.. There are no CAD designations. There are no new spiculated masses nor malignant appearing microcalcification groups. There is no significant architectural distortion nor skin thickening-retraction. IMPRESSION: No radiographic evidence of malignancy. BI-RADS Category 1 - Negative Breast Density - Category A - Almost entirely fatty Breast density Category C or D implies that the patient has dense breast tissue. Dense breast tissue can make it harder to find cancer on a mammogram. Dense breast tissue is also associated with an incr eased risk of breast cancer. This information about the result of the mammogram report was provided to the patient to raise their awareness. Use this report when you speak with the patient about their risks for breast cancer, which includes their family history. At that time, you may recommend additional screening tests (Ultrasoun d or MRI) as these tests may add significant information. A negative radiographic report should not delay biopsy if a dominant or clinically suspicious mass is present. Up to ten percent of cancers are not identified on mammography. A negative report may reinforce clinical impression. Adenosis and dense breasts may obscure an underlying neoplasm. False positive reports average 6 to 10%. Patient will receive a letter notifying them of these results.
== END ==
PROVIDERS: PCP Nurse Practitioner Family; Visit Provider Nurse Practitioner Family
DX: Z12.31 Encounter for screening mammogram for malignant neoplasm of breast (principal)
CPT/HCPCS: 77063; 77067

== ENCOUNTER 2023-10-04 13:27 | Outpatient (REF) | payer BC, SELFPAY ==
[2023-10-04 16:20] LABS: Hemoglobin A1C 6.7 % (<5.7)
[2023-10-04 16:32] LABS: Anion Gap 8.2 mmol/L (3-11); BUN 11 mg/dL (7-18); CO2 29.8 mmol/L (21.0-32.0); CREATININE 0.8 mg/dL (0.55-1.02); Calculated LDL 74 mg/dL (<100); Chloride 101 mmol/L (98-107); Cholesterol 170 mg/dL (<200); Estimated GFR 90.27 (mL/min/1.73m2); Glucose 136 mg/dL (74-106); HDL Cholesterol 59 mg/dL (40-60); Sodium 139 mmol/L (136-145); Triglyceride 185 mg/dL (<150)
[2023-10-04 16:45] LABS: Potassium 2.8 mmol/L (3.5-5.1)
== END 2023-10-04 13:28 | disposition home or self-care (01) ==
LOC: NCHCN 13:27
PROVIDERS: Visit Provider Nurse Practitioner Family
DX: I10 Essential (primary) hypertension (principal); R73.03 Prediabetes; E66.8 Other obesity
CPT/HCPCS: 80048; 80061; 83036

== ENCOUNTER 2023-10-14 19:43 | Outpatient (CLI) | payer BC, SELFPAY ==
[2023-10-14 13:47] LABS: Potassium 3.7 mmol/L (3.5-5.1)
== END 2023-10-14 19:44 | disposition home or self-care (01) ==
LOC: LBO 19:43
PROVIDERS: PCP Student in an Organized Health Care Education/Training Program; Visit Provider Nurse Practitioner Family
DX: E87.6 Hypokalemia (principal)
CPT/HCPCS: 36415; 84132

== ENCOUNTER 2024-05-28 12:41 | Outpatient (REF) | payer BC, SELFPAY ==
[2024-05-28 15:06] LABS: Abs Immature Grans 0.03 10^3/uL (0.0-0.06); Absolute Basophil Count 0.09 10^3/uL (0.0-0.2); Absolute Monocyte Count 0.57 10^3/uL (0.1-0.8); Absolute Neutrophil Count 7.46 10^3/uL (1.2-6.7); Basophils % 0.9 %; HCT 35.7 % (36.0-46.0); HGB 11.4 g/dL (11.2-15.7); Immature Grans % 0.3 %; Lymphocytes % 14.5 %; MCH 26.6 pg (27.0-33.0); MCHC 31.9 % (32.0-36.0); MCV 83 fL (80-95); MPV 10.8 fL (8.0-11.0); Monocytes % 5.9 %; Neutrophils % 77.4 %; Platelet Count 413 10^3/uL (130-400); RBC 4.28 10^6/uL (3.93-5.22); RDW 14.2 % (11.7-14.6); RDW-SD 42.6 fL; WBC 9.65 10^3/uL (4.4-10.8)
[2024-05-28 15:18] LABS: ALT 16 U/L (14-59); AST 16 U/L (15-37); Albumin 3.8 g/dL (3.4-5.0); Alkaline Phosphatase 103 U/L (46-116); Anion Gap 9.3 mmol/L (3-11); BUN 13 mg/dL (7-18); Bilirubin, Total 0.57 mg/dL (0.2-1.0); CO2 28.7 mmol/L (21.0-32.0); CREATININE 0.9 mg/dL (0.55-1.02); Chloride 99 mmol/L (98-107); Estimated GFR 78.37 (mL/min/1.73m2); Glucose 121 mg/dL (74-106); Potassium 3.7 mmol/L (3.5-5.1); Sodium 137 mmol/L (136-145); Total Protein 7.4 g/dL (6.4-8.2)
== END 2024-05-28 12:42 | disposition home or self-care (01) ==
LOC: NCHCN 12:41
PROVIDERS: PCP Student in an Organized Health Care Education/Training Program; Visit Provider Physician Assistant
DX: R50.9 Fever, unspecified (principal)
CPT/HCPCS: 80053; 85025

== ENCOUNTER 2024-08-11 15:58 | Outpatient (REF) | payer BC, SELFPAY ==
[2024-08-11 15:54] LABS: COMMENT (LAB VIEW ONLY) 224.65 mg/dL; Microalb ug/mg Crea 30.3 ug/mg Cr
== END 2024-08-11 15:59 | disposition home or self-care (01) ==
LOC: NCHCN 15:58
PROVIDERS: PCP Student in an Organized Health Care Education/Training Program; Visit Provider Nurse Practitioner Family
DX: I10 Essential (primary) hypertension (principal)
CPT/HCPCS: 82043; 82570

== ENCOUNTER 2024-11-23 01:32 | Outpatient (CLI) | payer BC, SELFPAY ==
--- NOTE | 2024-11-23 | DI.MAMMO_ITS ---
Exam(s) MAMMO SCREENING EXAM: MAMMO SCREENING CLINICAL HISTORY: SCREENING MAMMO Z12.39 TECHNIQUE: Bilateral full field digital CC and MLO mammographic images were obtained with 3D tomosynthesis and utilizing computer aided detection (CAD). COMPARISON: Comparison is made with prior examinations. FINDINGS: Masses/Architectural Distortion: No suspicious masses or areas of architectural distortion are present. Microcalcifications: No suspicious pleomorphic-type are seen. Skin Thickening/Nipple Retraction: None. IMPRESSION: 1. No significant interval change with no specific features of malignancy noted. 2. Unless there is more urgent need, screening mammography is recommended, as per [employer] guidelines. BI-RADS Category 1 - Negative Breast Density - Category A - The breast are almost entirely fatty. Breast density Category C or D implies that the patient has dense breast tissue. Dense breast tissue can make it harder to find cancer on a mammogram. Dense breast tissue is also associated with an increased risk of breast cancer. This information about the result of the mammogram report was provided to the patient to raise their awareness. Use this report when you speak with the patient about their risks for breast cancer, which includes their family history. At that time, you may recommend additional screening tests (Ultrasound or MRI) as these tests may add significant information. A negative radiographic report should not delay biopsy if a dominant or clinically suspicious mass is present. Up to ten percent of cancers are not identified on mammography. A negative report may reinforce clinical impression. Adenosis and dense breasts may obscure an underlying neoplasm. False positive reports average 6 to 10%. Patient will receive a letter notifying them of these results.
== END 2024-11-23 01:52 ==
PROVIDERS: PCP Student in an Organized Health Care Education/Training Program; Visit Provider Nurse Practitioner Family
DX: Z12.31 Encounter for screening mammogram for malignant neoplasm of breast (principal); R92.313 Mammographic fatty tissue density, bilateral breasts
CPT/HCPCS: 77063; 77067